=== PATIENT | male | born 1930 | race Caucasian/White ===

== ENCOUNTER 2018-03-19 07:38 | Inpatient (IN) | payer OTHER ==
[~2018-03-19] VITALS: Ht 180.3 cm; Wt 72.7 kg
--- NOTE | ~2018-03-19 | PR ---
[place], [place] PROGRESS NOTE NAME: LINNEA KENNEYD UNIT #: [id number] ROOM: 509 DOCTOR: HORACIO LOPEZ MD BIRTHDATE: [birth year] DOS: 03/24/2018 The patient was seen at his bedside today. We were asked to see the patient again because he was noted to have T-wave abnormalities on his monitor. Subsequent troponin levels denny from normal on the day of admission to 0.336 early this morning. The troponin levels have fallen since then to 0.294. The patient remains intermittently agitated. He has not been complaining of chest pain, according to the nurses. He was given Ativan earlier and now is very sedated. He does not arouse to tell me how he is feeling. PHYSICAL EXAMINATION: VITAL SIGNS: Pulse is 81 and regular, blood pressure is 158/96. He is afebrile. NECK: Supple. He has no jugular distention. Carotids are full. LUNGS: Respirations are unlabored. His chest is clear anteriorly and laterally. HEART: Has a regular rhythm with an S4 gallop, but no S3. ABDOMEN: Soft. EXTREMITIES: Showed no edema. IMPRESSION: 1. Elevated troponin, most likely related to acute cardiac injury. 2. Type 2 diabetes mellitus. 3. Hypertension. 4. History of congestive heart failure. 5. History of paroxysmal atrial fibrillation. 6. History of coronary artery disease. 7. History of sinus bradycardia while on digoxin. Beta blockers and diltiazem are being avoided because of concerns regarding heart block and bradycardia. PLAN: Currently, the patient is on no anti-ischemic medications. We are avoiding beta blockers and calcium channel blockers because of the potential for bradycardia. We will empirically start nitrates. He is on warfarin for his paroxysmal atrial fibrillation and we will therefore not start aspirin. I will repeat the troponin once more in the morning and get an electrocardiogram in the morning as well to see if there has been any change in his EKG. Long-term, however, I think that unless his sensorium improves dramatically, we would be very reluctant to submit him to any kind of further diagnostic testing. He certainly is not at this time a candidate for any advanced or invasive cardiac care. We will continue to follow him with the other physicians and his team and we thank the hospitalist doctors for asking our advice regarding his care. [place], [place] PROGRESS NOTE NAME: LINNEA KENNEDY UNIT #: [id number] ROOM: 509 DOCTOR: HORACIO LOPEZ MD BIRTHDATE: [birth year] HORACIO LOPEZ MD CM:PNTRANS [id number] HORACIO LOPEZ MD 03/25/18 1614 interface
--- NOTE | ~2018-03-19 | CON ---
[place], [place] REPORT OF CONSULTATION NAME: LINNEA KENNEDY UNIT #: [id number] ROOM: 511 DOCTOR: EDNA ARAGON MD BIRTHDATE: [birth year] DOS: 03/22/2018 PSYCHIATRIC CONSULTATION CHIEF COMPLAINT: "Morning." HISTORY OF PRESENT ILLNESS: This is an 87-year-old male who resides at [facility]. He has a significant medical history that includes dementia, Parkinson's disease, congestive heart failure, atrial fibrillation, hypertension, diabetes, nicotine abuse. He is admitted to [facility] in an acute delirium. The patient is alert, but disoriented. His mental clarity per the chart states that it comes and goes. He at times is looking for his lost phone. His sleep has been disruptive. He at times has been somewhat agitated. PAST MEDICAL HISTORY: Remarkable for acute kidney injury, bradycardia, delirium, lymphopenia, normocytic anemia, AFib, congestive heart failure, coronary artery disease, hyperlipidemia, hypertension, left ventricular hypertrophy, myocardial infarct, Parkinson's disease and diabetes. MENTAL STATUS: The patient is alert and oriented to person, possibly place, not time. Mood does seem to be somewhat labile, but overall he was pleasant with me. Responses tended to be short and simple. There was no agitation; however, there were no overt auditory or visual hallucinations. No delusions, no paranoia. There were significant gaps in short term memory. DIAGNOSES: Brief psychotic disorder and major depression, recurrent. PLAN: I will maintain him on his Remeron 15 mg at bedtime as this will aid sleep and improve appetite. I have discontinued his Aricept as this does affect the caudate nucleus and could potentially make his parkinsonian symptoms worse. In place of it, I will go ahead and start him on Exelon patch 4.6 mg topically daily. This should be increased to 9.5 mg a day in several days, maintain the Namenda. Namenda share similarities to Symmetrel and it too should help the Parkinson's and would definitely not exacerbate it. I did not bring up to him the possibility of a stay on the U. When you feel he is medically clear, if he is still exhibiting some of the hallucinations and mood lability, I would be happy to admit him to the U for further evaluation and treatment. [place], [place] REPORT OF CONSULTATION NAME: LINNEA KENNEDY UNIT #: [id number] ROOM: 511 DOCTOR: EDNA ARAGON MD BIRTHDATE: [birth year] EDNA ARAGON MD CM:CONSTR:REPORT OF CONSULTATION 1132 03/22/18 1218 interface
[2018-03-19 07:38] VITALS: BP 176/80
[~2018-03-19 07:38] MED LIST: ARICEPT10 M1 PO; B12,B-12,B 12500 MC1 PO; CELEXA40 MG PO; COUMADIN5 M2 PO; HYDROCODONE BIT1 T11 PO; LOSARTAN POTASS25 M1 PO; LOSARTAN POTASS50 M1 PO; METFORMIN500 MG PO; PREDNISONE1 MG PO; PROSCAR5 M1 PO; SINEMET 25-2501 TA1 PO; VICODIN 500 MG-1 TAB PO
[2018-03-19 07:56] LABS: BILIRUBIN NEGATIVE (NEGATIVE); BLOOD NEGATIVE (NEGATIVE); CLARITY SL CLOUDY (CLEAR); COLOR YELLOW (YELLOW); GLUCOSE NEGATIVE (NEGATIVE); KETONE TRACE (NEGATIVE); LEUKO ESTERASE NEGATIVE (NEGATIVE); NITRITE NEGATIVE (NEGATIVE); SPECIFIC GRAVITY >= 1.030 (1.005-1.030); UROBILINOGEN 0.2 E.U./dl (0.2-1.0)
[2018-03-19 08:02] LABS: BASO # 0.1 10*3/uL (0.0-0.1); BASO % 0.7 % (0.0-1.0); EOS # 0.1 10*3/uL (0.0-0.4); EOS % 1.6 % (1.0-4.0); HEMATOCRIT 37.1 % (42.0-52.0); HEMOGLOBIN 11.9 g/dl (14.0-18.0); LYMPH # 1.3 10*3/uL (1.3-4.4); LYMPH % 14.9 % (27.0-41.0); MEAN CELL VOLUME 92.8 fl (80.0-94.0); MEAN CORPUSCULAR HGB 29.8 pg (27.0-31.0); MEAN CORPUSCULAR HGB CONC 32.1 g/dl (33.0-37.0); MEAN PLATELET VOLUME 9.8 fl (9.6-12.3); MONO # 0.6 10*3/uL (0.1-1.0); MONO % 6.6 % (3.0-9.0); NEUT # 6.5 10*3/uL (2.3-7.9); NEUT % 75.8 % (47.0-73.0); PLATELET COUNT AUTOMATED 247 10*3/uL (130-400); RED CELL DISTRI WIDTH 15.1 % (0-14.5); WHITE BLOOD COUNT 8.5 10*3/uL (4.8-10.8)
[2018-03-19 08:25] LABS: ALBUMIN 3.7 gm/dl (3.1-4.5); ALKALINE PHOSPHATASE 64 U/L (45-117); BUN 38 mg/dl (7-24); CHLORIDE 102 mmol/L (98-107); POTASSIUM 5.6 mmol/L (3.5-5.1); SGOT/AST 15 IU/L (3-35); SGPT/ALT < 6 U/L (12-78); SODIUM 137 mmol/L (136-145); TOTAL PROTEIN 8.4 gm/dL (6.4-8.2)
[2018-03-19 08:40] LABS: BACTERIA 2+; CALCIUM OXALATE CRYSTALS 2+; FINE GRANULAR CAST TNTC
[2018-03-19] MEDS ORDERED: NAMENDA XR28 M1 PO (08:47)
[2018-03-19] MEDS ORDERED: NAMENDA XR21 M1 PO (08:48)
[2018-03-19] MEDS ORDERED: COUMADIN0.5 MG PO (08:49)
[2018-03-19] MEDS ORDERED: NAMENDA-14 PO (08:50)
[2018-03-19] MEDS ORDERED: VITAMIN D32000 UNI1 PO (08:50)
[2018-03-19] MEDS ORDERED: COUMADIN3 M1 PO (08:50)
[2018-03-19] MEDS ORDERED: REMERON15 M2 PO (08:51)
[2018-03-19] MEDS ORDERED: GLUCOPHAGE1000 MG PO (08:52)
[2018-03-19] MEDS ORDERED: DIGITEK125 MCG PO (08:52)
[2018-03-19] MEDS ORDERED: FINASTERIDE5 M1 PO (08:52)
[2018-03-19] MEDS ORDERED: NOVOLOG10 ML IV (08:52)
[2018-03-19] MEDS ORDERED: COZAAR25 M1 PO (08:53)
[2018-03-19] MEDS ORDERED: MIRAPEX0.125 M1 PO (08:53)
[2018-03-19] MEDS ORDERED: CARBIDOPA-LEVO1 EAC7 PO (08:53)
[2018-03-19] MEDS ORDERED: DELTASONE1 MG PO (08:53)
[2018-03-19] MEDS ORDERED: GLUCAGON EMERGEN1 M1 IJ (08:54)
[2018-03-19] MEDS ORDERED: ARICEPT10 M1 PO (08:54)
[2018-03-19] MEDS ORDERED: DUONEB 3 MG/3 ML3 M1 INH (08:56)
[2018-03-19] MEDS ORDERED: TYLENOL325 M1 PO (08:56)
[2018-03-19 09:00] VITALS: BP 152/75; BP 180/78
[2018-03-19 10:00] VITALS: BP 152/75
[2018-03-19 12:00] VITALS: BP 154/65
[2018-03-19 14:48] LABS: INTERNATIONAL NORM RATIO 1.7 (2.0-3.5)
[2018-03-19 14:56] LABS: TROPONIN I 0.017 ng/ml (<0.045)
[2018-03-19 15:07] LABS: DIGOXIN 1.91 ng/ml (0.8-2.0)
[2018-03-19 16:00] VITALS: BP 154/65
[2018-03-19 20:00] VITALS: BP 172/78
[2018-03-20] VITALS: BP 104/78; BP 190/71
[2018-03-20 07:02] LABS: BASO # 0.1 10*3/uL (0.0-0.1); BASO % 1.2 % (0.0-1.0); EOS # 0.3 10*3/uL (0.0-0.4); EOS % 4.2 % (1.0-4.0); HEMATOCRIT 36.6 % (42.0-52.0); HEMOGLOBIN 11.7 g/dl (14.0-18.0); LYMPH # 1.9 10*3/uL (1.3-4.4); LYMPH % 26.9 % (27.0-41.0); MEAN CELL VOLUME 92.7 fl (80.0-94.0); MEAN CORPUSCULAR HGB 29.6 pg (27.0-31.0); MEAN PLATELET VOLUME 10.6 fl (9.6-12.3); MONO # 0.6 10*3/uL (0.1-1.0); MONO % 8.4 % (3.0-9.0); NEUT # 4.3 10*3/uL (2.3-7.9); NEUT % 59.2 % (47.0-73.0); PLATELET COUNT AUTOMATED 240 10*3/uL (130-400); RED BLOOD COUNT 3.95 10*6/uL (4.50-5.90); WHITE BLOOD COUNT 7.2 10*3/uL (4.8-10.8)
[2018-03-20 07:29] LABS: ALBUMIN 3.2 gm/dl (3.1-4.5); CREATININE 1.45 mg/dL (0.70-1.30); PHOSPHOROUS 2.7 mg/dL (2.5-4.9); POTASSIUM 4.7 mmol/L (3.5-5.1)
[2018-03-20 07:30] LABS: INTERNATIONAL NORM RATIO 1.6 (2.0-3.5)
[2018-03-20 07:40] LABS: THYROID STIM HORMONE (HS) 1.68 uIU/ml (0.358-4.75); TOTAL PROTEIN 7.8 gm/dL (6.4-8.2)
[2018-03-20 08:00] VITALS: BP 154/63
[2018-03-20 08:53] LABS: VITAMIN D, 25-HYDROXY 30.2 ng/mL (30-100)
[2018-03-20 12:00] VITALS: BP 158/80
[2018-03-20 16:00] VITALS: BP 152/71
[2018-03-20 20:00] VITALS: BP 140/62
[2018-03-21] VITALS: BP 158/67
[2018-03-21 06:37] LABS: BASO # 0.1 10*3/uL (0.0-0.1); BASO % 1.2 % (0.0-1.0); EOS # 0.3 10*3/uL (0.0-0.4); EOS % 4.9 % (1.0-4.0); HEMATOCRIT 35.2 % (42.0-52.0); HEMOGLOBIN 10.8 g/dl (14.0-18.0); LYMPH # 1.8 10*3/uL (1.3-4.4); LYMPH % 26.9 % (27.0-41.0); MEAN CELL VOLUME 94.9 fl (80.0-94.0); MEAN CORPUSCULAR HGB 29.1 pg (27.0-31.0); MEAN CORPUSCULAR HGB CONC 30.7 g/dl (33.0-37.0); MEAN PLATELET VOLUME 10.9 fl (9.6-12.3); MONO # 0.7 10*3/uL (0.1-1.0); MONO % 9.6 % (3.0-9.0); NEUT # 3.9 10*3/uL (2.3-7.9); NEUT % 57.3 % (47.0-73.0); PLATELET COUNT AUTOMATED 211 10*3/uL (130-400); RED BLOOD COUNT 3.71 10*6/uL (4.50-5.90); RED CELL DISTRI WIDTH 14.9 % (0-14.5); WHITE BLOOD COUNT 6.8 10*3/uL (4.8-10.8)
[2018-03-21 07:03] LABS: ALKALINE PHOSPHATASE 54 U/L (45-117); BUN 23 mg/dl (7-24); CHLORIDE 109 mmol/L (98-107); INTERNATIONAL NORM RATIO 1.5 (2.0-3.5); PHOSPHOROUS 2.4 mg/dL (2.5-4.9); POTASSIUM 4.9 mmol/L (3.5-5.1); SGOT/AST 12 IU/L (3-35); SGPT/ALT 8 U/L (12-78); SODIUM 143 mmol/L (136-145); TOTAL PROTEIN 7.2 gm/dL (6.4-8.2)
[2018-03-21 07:51] LABS: DIGOXIN 0.99 ng/ml (0.8-2.0)
[2018-03-21 08:00] VITALS: BP 188/98
[2018-03-21 09:38] VITALS: BP 150/60
[2018-03-21 12:00] VITALS: BP 158/81
[2018-03-21 16:00] VITALS: BP 133/69
[2018-03-21 20:00] VITALS: BP 110/53
[2018-03-22] VITALS: BP 158/86
[2018-03-22 06:33] LABS: BASO # 0.1 10*3/uL (0.0-0.1); BASO % 0.8 % (0.0-1.0); EOS # 0.4 10*3/uL (0.0-0.4); EOS % 4.3 % (1.0-4.0); HEMATOCRIT 38.2 % (42.0-52.0); LYMPH # 2.3 10*3/uL (1.3-4.4); LYMPH % 26.3 % (27.0-41.0); MEAN CELL VOLUME 93.4 fl (80.0-94.0); MEAN CORPUSCULAR HGB 29.3 pg (27.0-31.0); MEAN CORPUSCULAR HGB CONC 31.4 g/dl (33.0-37.0); MONO # 0.7 10*3/uL (0.1-1.0); MONO % 8.4 % (3.0-9.0); NEUT # 5.3 10*3/uL (2.3-7.9); PLATELET COUNT AUTOMATED 212 10*3/uL (130-400); RED BLOOD COUNT 4.09 10*6/uL (4.50-5.90); RED CELL DISTRI WIDTH 15.1 % (0-14.5); WHITE BLOOD COUNT 8.8 10*3/uL (4.8-10.8)
[2018-03-22 06:59] LABS: INTERNATIONAL NORM RATIO 1.4 (2.0-3.5)
[2018-03-22 07:02] LABS: ALBUMIN 3.2 gm/dl (3.1-4.5); BUN 19 mg/dl (7-24); CHLORIDE 105 mmol/L (98-107); POTASSIUM 4.4 mmol/L (3.5-5.1); SODIUM 140 mmol/L (136-145)
[2018-03-22 07:05] LABS: ALKALINE PHOSPHATASE 67 U/L (45-117); CREATININE 1.26 mg/dL (0.70-1.30); SGOT/AST 18 IU/L (3-35); SGPT/ALT 8 U/L (12-78)
[2018-03-22 08:00] VITALS: BP 177/95
[2018-03-22 12:00] VITALS: BP 114/89
[2018-03-22 16:00] VITALS: BP 120/57
[2018-03-22 20:00] VITALS: BP 155/75
[2018-03-23 04:00] VITALS: BP 168/72
[2018-03-23 07:24] LABS: BASO # 0.1 10*3/uL (0.0-0.1); BASO % 0.8 % (0.0-1.0); EOS # 0.2 10*3/uL (0.0-0.4); EOS % 2.3 % (1.0-4.0); HEMOGLOBIN 12.1 g/dl (14.0-18.0); LYMPH # 2.1 10*3/uL (1.3-4.4); MEAN CELL VOLUME 91.3 fl (80.0-94.0); MEAN CORPUSCULAR HGB 29.1 pg (27.0-31.0); MEAN CORPUSCULAR HGB CONC 31.8 g/dl (33.0-37.0); MEAN PLATELET VOLUME 10.5 fl (9.6-12.3); MONO # 0.9 10*3/uL (0.1-1.0); NEUT # 6.6 10*3/uL (2.3-7.9); NEUT % 66.8 % (47.0-73.0); PLATELET COUNT AUTOMATED 192 10*3/uL (130-400); RED BLOOD COUNT 4.16 10*6/uL (4.50-5.90); WHITE BLOOD COUNT 9.9 10*3/uL (4.8-10.8)
[2018-03-23 07:34] LABS: INTERNATIONAL NORM RATIO 1.4 (2.0-3.5)
[2018-03-23 07:40] LABS: ALBUMIN 3.3 gm/dl (3.1-4.5); ALKALINE PHOSPHATASE 68 U/L (45-117); BUN 21 mg/dl (7-24); CHLORIDE 103 mmol/L (98-107); CREATININE 1.33 mg/dL (0.70-1.30); POTASSIUM 4.5 mmol/L (3.5-5.1); SGOT/AST 17 IU/L (3-35); SGPT/ALT 7 U/L (12-78); SODIUM 139 mmol/L (136-145)
[2018-03-23 08:00] VITALS: BP 162/69
[2018-03-23 12:00] VITALS: BP 135/81
[2018-03-23] MEDS ORDERED: RIVASTIGMINE1 EACH T (12:37)
[2018-03-23 16:00] VITALS: BP 136/52
[2018-03-23 20:00] VITALS: BP 172/86
[2018-03-24] VITALS: BP 164/88
[2018-03-24 06:23] LABS: BASO # 0.1 10*3/uL (0.0-0.1); BASO % 0.5 % (0.0-1.0); EOS # 0.1 10*3/uL (0.0-0.4); EOS % 0.7 % (1.0-4.0); HEMOGLOBIN 12.5 g/dl (14.0-18.0); LYMPH # 0.7 10*3/uL (1.3-4.4); LYMPH % 7.2 % (27.0-41.0); MEAN CELL VOLUME 92.4 fl (80.0-94.0); MEAN CORPUSCULAR HGB 29.6 pg (27.0-31.0); MEAN CORPUSCULAR HGB CONC 32.1 g/dl (33.0-37.0); MEAN PLATELET VOLUME 10.1 fl (9.6-12.3); MONO # 0.8 10*3/uL (0.1-1.0); MONO % 7.6 % (3.0-9.0); NEUT # 8.5 10*3/uL (2.3-7.9); NEUT % 83.6 % (47.0-73.0); PLATELET COUNT AUTOMATED 180 10*3/uL (130-400); RED BLOOD COUNT 4.22 10*6/uL (4.50-5.90); RED CELL DISTRI WIDTH 15.4 % (0-14.5); WHITE BLOOD COUNT 10.2 10*3/uL (4.8-10.8)
[2018-03-24 06:42] LABS: ALBUMIN 3.5 gm/dl (3.1-4.5); CREATININE 1.53 mg/dL (0.70-1.30); PHOSPHOROUS 2.8 mg/dL (2.5-4.9); POTASSIUM 4.1 mmol/L (3.5-5.1); TOTAL PROTEIN 8.7 gm/dL (6.4-8.2)
[2018-03-24 06:48] LABS: TROPONIN I 0.336 ng/ml (<0.045)
[2018-03-24 07:04] LABS: INTERNATIONAL NORM RATIO 1.3 (2.0-3.5)
[2018-03-24 08:00] VITALS: BP 158/96
[2018-03-24 16:00] VITALS: BP 151/73
[2018-03-24 20:00] VITALS: BP 111/48
[2018-03-25] VITALS: BP 116/64
[2018-03-25 06:44] LABS: BASO # 0.1 10*3/uL (0.0-0.1); BASO % 0.5 % (0.0-1.0); EOS # 0.1 10*3/uL (0.0-0.4); EOS % 1.1 % (1.0-4.0); HEMATOCRIT 39.2 % (42.0-52.0); HEMOGLOBIN 12.3 g/dl (14.0-18.0); LYMPH # 1.4 10*3/uL (1.3-4.4); LYMPH % 13.5 % (27.0-41.0); MEAN CELL VOLUME 94.2 fl (80.0-94.0); MEAN CORPUSCULAR HGB 29.6 pg (27.0-31.0); MEAN CORPUSCULAR HGB CONC 31.4 g/dl (33.0-37.0); MONO # 0.8 10*3/uL (0.1-1.0); MONO % 8.2 % (3.0-9.0); NEUT # 7.9 10*3/uL (2.3-7.9); NEUT % 76.4 % (47.0-73.0); PLATELET COUNT AUTOMATED 179 10*3/uL (130-400); RED BLOOD COUNT 4.16 10*6/uL (4.50-5.90); RED CELL DISTRI WIDTH 15.6 % (0-14.5); WHITE BLOOD COUNT 10.3 10*3/uL (4.8-10.8)
[2018-03-25 06:58] LABS: INTERNATIONAL NORM RATIO 1.3 (2.0-3.5)
[2018-03-25 07:07] LABS: CREATININE 1.68 mg/dL (0.70-1.30); POTASSIUM 4.1 mmol/L (3.5-5.1)
[2018-03-25 07:22] LABS: TROPONIN I 0.237 ng/ml (<0.045)
[2018-03-25 08:00] VITALS: BP 146/72
[2018-03-25 12:00] VITALS: BP 114/53
== END 2018-03-25 16:55 | disposition other institution (70) | DRG 280 ==
LOC: ED 07:38 → EDHOLD 08:44 → 5E 08:44
PROVIDERS: Emergency Medicine; Internal Medicine; Internal Medicine Nephrology; Student in an Organized Health Care Education/Training Program
DX: I21.4 Non-ST elevation (NSTEMI) myocardial infarction (principal); G93.41 Metabolic encephalopathy; N17.0 Acute kidney failure with tubular necrosis; E11.22 Type 2 diabetes mellitus with diabetic chronic kidney disease; E87.5 Hyperkalemia; D68.59 Other primary thrombophilia; N18.3 Chronic kidney disease, stage 3 (moderate); F33.9 Major depressive disorder, recurrent, unspecified; I50.32 Chronic diastolic (congestive) heart failure; I13.0 Hypertensive heart and chronic kidney disease with heart failure and stage 1 through stage 4 chronic kidney disease, or unspecified chronic kidney disease; J98.11 Atelectasis; F23 Brief psychotic disorder; I48.0 Paroxysmal atrial fibrillation; E86.0 Dehydration; G20 Parkinson's disease; D64.9 Anemia, unspecified; D72.810 Lymphocytopenia; R80.9 Proteinuria, unspecified; T45.515A Adverse effect of anticoagulants, initial encounter; T46.0X5A Adverse effect of cardiac-stimulant glycosides and drugs of similar action, initial encounter; E78.5 Hyperlipidemia, unspecified; I25.10 Atherosclerotic heart disease of native coronary artery without angina pectoris; F02.80 Dementia in other diseases classified elsewhere, unspecified severity, without behavioral disturbance, psychotic disturbance, mood disturbance, and anxiety; I44.0 Atrioventricular block, first degree; I25.2 Old myocardial infarction; Z95.1 Presence of aortocoronary bypass graft; Z95.5 Presence of coronary angioplasty implant and graft; Z87.891 Personal history of nicotine dependence; Z83.6 Family history of other diseases of the respiratory system; Z88.0 Allergy status to penicillin; Z88.1 Allergy status to other antibiotic agents; Z79.899 Other long term (current) drug therapy; Z79.01 Long term (current) use of anticoagulants; Z79.4 Long term (current) use of insulin; Y92.89 Other specified places as the place of occurrence of the external cause; Z87.01 Personal history of pneumonia (recurrent)